=== PATIENT | male | born 1980 | race Caucasian/White ===

== ENCOUNTER 2023-11-26 01:43 | Emergency (ER) | payer MEDICARE, SELFPAY ==
[2023-11-26] VITALS (51 sets, daily range): BP systolic 102–152; BP diastolic 71–103; PULSE 70–135; RESP 12–35; TEMP 37; O2SAT 89–100
--- NOTE | ~2023-11-26 | XR_ITS ---
XR chest 1V portable DATE: 11/26/2023 02:03 INDICATION: Chest pain, shortness of breath TECHNIQUE: Portable AP chest on 11/26/2023 at 0210 hours COMPARISON: None FINDINGS: Normal heart size. No hilar or mediastinal enlargement. No pulmonary infiltrate or consolid ation, pleural effusion or pulmonary vascular congestion or pneumothorax is detected. IMPRESSION: No active cardiopulmonary disease Reviewed, dictated and finalized at location [facility].
--- NOTE | ~2023-11-26 | CT_ITS ---
EXAMINATION: CTA chest PE protocol DATE: 11/26/2023 03:37 INDICATION: Shortness of breath. Elevated d-dimer. TECHNIQUE: Computed tomography angiography (CTA) of the chest was performed with 100 mL Omnipaque-350 intravenous contrast timed to evaluate the pulmonary arteries. Coronal maximum intensity projection 3D-reconstructions were created by the technologist. Automated exposure control and iterative reconst ruction technique were employed. Exam dose: 248.75 mGy-cm total exam DLP. COMPARISON: None. FINDINGS: There is diagnosed contrast-enhancement pulmonary artery and mild bilateral lower lobe subs egmental pulmonary emboli. No thoracic aortic aneurysm or dissection. Normal heart size. No pericardial or pleural effusion. No significantly enlarged hilar or mediastinal lymph nodes. Normal morphology of the adrenal glands. Minimal dependent lower lobe infiltration/atelectasis. The lungs are otherwise clear. Skeletal structures are unremarkable. IMPRESSION: Bilateral subsegmental lower lobe pulmonary emboli Minimal dependent infiltrate and/or atelectasis in the lower lobes. Reviewed, dictated and finalized at [facility]. Reviewed, dictated and finalized at location [facility].
--- NOTE | 2023-11-26 01:45 | ECG_ITS ---
SEE SCANNED COPY FOR CONFIRMED REPORT MTDD
[2023-11-26 01:49] LABS: Glucose Point of Care 117 mg/dl (65-105)
[2023-11-26] MEDS: NITROGLYCERIN SL 0.4 MG TABLET SUBLINGUAL (01:55)
[2023-11-26] MEDS: ASPIRIN 81 MG CHEWABLE TABLET 324 MG PO (01:55)
[2023-11-26] MEDS: METOPROLOL TARTRATE INJ 5 MG/5 ML VIAL IV PUSH (02:00)
[2023-11-26] MEDS: MORPHINE SULFATE (*CRX) 2 MG/ML INJ IV PUSH (02:00)
[2023-11-26 02:05] LABS: Basophils Absolute Auto 0.06 K/mm3 (0.00-0.10); Basophils Percent Auto 0.6 % (0.0-1.0); Eosinophils Absolute Auto 0.13 K/mm3 (0.02-0.50); Eosinophils Percent Auto 1.2 % (1.0-6.0); Hematocrit 49.9 % (40.0-54.0); Hemoglobin 16.6 g/dL (14.0-18.0); Immature Granulocyte Absolute 0.04 K/mm3 (0.00-0.00); Immature Granulocyte Percent A 0.4 % (0.0-0.0); Lymphocytes Absolute Auto 3.29 K/mm3 (1.10-4.50); Lymphocytes Percent Auto 31.3 % (18.0-42.0); Mean Corpuscular HGB Conc 33.3 g/dL (32-36); Mean Corpuscular Hemoglobin 31.7 pg (27.0-31.0); Mean Corpuscular Volume 95.4 fL (78.0-102.0); Mean Platelet Volume 8.8 fl (8.7-11.0); Monocytes Absolute Auto 1.41 K/mm3 (0.10-0.90); Monocytes Percent Auto 13.4 % (2.0-11.0); Neutrophils Absolute Auto 5.57 K/mm3 (1.70-7.20); Neutrophils Percent Auto 53.1 % (50.0-70.0); Platelet Count Result 213 K/mm3 (150-420); Red Blood Count 5.23 M/mm3 (4.70-6.10); White Blood Count 10.5 K/mm3 (4.8-10.8)
--- NOTE | 2023-11-26 02:11 | ED.CHESTPAIN ---
HPI - Chest Pain General Chief Complaint: Chest Pain Stated Complaint: chest pain Time Seen by Provider: 11/26/23 01:54 Source: patient Mode of arrival: ambulatory Limitations: no limitations History of Present Illness HPI narrative: Patient is a 43-year-old male with a significant past medical history that presents today with chest pain. Patient's chest pain since last 3 hours. He woke up with chest pain was very bad. Painful knee came into the ER. He has never had this chest pain before. He was actually taking multiple medications but apparently his doctors or come off all his medications and says he is going to start him over. This this was about a few days ago. When asked if he takes any medications he said no. Apparently he was taking them but is not now. Also has shortness of breath with the chest pain. Chest pain is in the midsternal area radiating to the left MD complaint: chest pain and chest heaviness Onset (ago): hour(s) Timing of current episode: constant Prior episodes: No Onset: during rest Pain location: substernal Severity: moderate Pain scale (0-10): 8 Quality: heaviness and sharp Relieving factors: nothing Exacerbating factors: nothing Associated symptoms: diaphoresis, dyspnea, sense of impending doom and palpitations Treatment prior to arrival: none Risk Factors Coronary artery disease risk factors: smoking history Thoracic aortic dissection risk factors: none Related Data Home Medications Medication Instructions Recorded Confirmed omeprazole 40 mg capsule,delayed 40 mg PO DAILY 11/26/23 11/26/23 release Allergies Allergy/AdvReac Type Severity Reaction Status Date / Time No Known Allergies Allergy Verified 11/26/23 02:01 Review of Systems Review of Systems: All systems reviewed & are unremarkable except as noted in HPI and below Constitutional: Constitutional: Reports as per HPI Eyes: Eyes: Reports no additional eye complaints ENT: Reports system reviewed and no additional complaints, except as documented Cardiovascular: Cardiovascular: Reports no additional cardiovascular complaints Respiratory: Respiratory: Reports no additional respiratory complaints Gastrointestinal: Gastrointestinal: Reports no additional gastrointestinal complaints Genitourinary: Genitourinary: Reports no additional male genitourinary complaints Musculoskeletal: Musculoskeletal: Reports no additional musculoskeletal complaints Integumentary/Breasts: Skin/Breast: Reports system reviewed and no additional complaints, except as docu Neurologic: Reports system reviewed and no additional complaints, except as documented Psychiatric: Psychiatric: Reports no additional psychiatric complaints Endocrine: Endocrine: Reports no additional endocrine complaints Hematologic/Lymphatic: Hematologic/Lymphatic: Reports no additional hematologic/lymphatic complaints Allergic/Immunologic: Allergic/Immunologic: Reports no additional allergic/immunologic complaints Exam Const: General: healthy appearing and comfortable Nutritional Appearance: average body habitus and well nourished Orientation/consciousness: oriented to person and oriented to place HENMT: Head: normal to inspection and No palpable skull fracture present Ears: hearing grossly normal bilaterally Teeth and gingiva: dentition normal Eyes: General: appearance normal, both eyes and all related structures Neck: Neck: normal visual inspection and full ROM Chest: Chest palpation & inspection: normal inspection of the chest and normal palpation of entire chest wall Resp: Effort & Inspection: normal respiratory effort and able to speak in complete sentences Auscultation: clear to auscultation bilaterally Cardio: Jugular venous distension: no JVD Palpation: normal PMI Rate: regular rate Rhythm: regular rhythm Heart sounds: S1 normal heart sound present and S2 normal heart sound present GI: Inspection: normal to inspection and abdominal wall ecchymo
[2023-11-26] MEDS: IPRATROPIUM 0.5 MG/ALBUTEROL SULFATE 2.5 MG AMPUL.NEB 3 ML INHALATION (02:19)
[2023-11-26 02:29] LABS: Alanine Aminotransferase 21 U/L (16-63); Albumin Level 3.4 g/dL (3.4-5.0); Alkaline Phosphatase 131 U/L (46-116); Anion Gap 8 mmol/L (4-12); Aspartate Amino Transferase 25 U/L (15-37); Bilirubin,Total 0.9 mg/dL (0.00-1.00); Blood Urea Nitrogen 6 mg/dL (7-18); Carbon Dioxide 33 mmol/L (21-32); Chloride 97 mmol/L (98-108); Estimated CRCL calculation 95 ml/min; Estimated Glomerular Filt Rate > 60; Glucose 117 mg/dL (70-99); NT Pro B Type Natriuretic Pept 22 pg/mL (0-125); Osmolality Calculated 284 mOsm/kg (285-295); Potassium 3.4 mmol/L (3.5-5.1); Sodium 138 mmol/L (136-145); Total Protein 8.1 g/dL (6.4-8.2)
[2023-11-26 02:39] LABS: Troponin I < 4.0 ng/L (0.00-60.4)
[2023-11-26 03:11] LABS: Amphetamine Screen Urine Negative (Negative); Barbiturate Screen Urine Negative (Negative); Benzodiazepines Screen Urine Negative (Negative); Cannabinoid Screen Urine Positive (Negative); Cocaine Screen Urine Negative (Negative); Methadone Screen Urine Negative (Negative); Opiate Screen Urine Positive (Negative); Phencyclidine Screen Urine Negative (Negative)
[2023-11-26 03:12] LABS: Appearance Urine Clear (Clear); Bilirubin Urine Negative (Negative); Blood Urine Negative (Negative); Color Urine Yellow (Yellow); Glucose Urine UA Negative (Negative); Ketones Urine Negative (Negative); Leukocyte Esterase Ur Negative LEU/UL (Negative); Nitrate Urine Negative (Negative); Protein Urine Negative (Negative); Specific Grav Ur <= 1.005 (1.010-1.020); pH Urine 6.5 (5.0-8.0)
[2023-11-26 03:15] LABS: Add Urine Microscopic? NO
[2023-11-26 05:30] LABS: Troponin I < 4.0 ng/L (0.00-60.4)
[2023-11-26 06:32] LABS: INR 0.9; Partial Thromboplastin Time 28.1 Sec (23.9-30.70); Prothrombin Time 10.4 Seconds (9.50-12.1)
[2023-11-26] MEDS: RIVAROXABAN 15 MG TABLET PO (06:51)
== END 2023-11-26 07:10 | disposition home or self-care (01) ==
PROVIDERS: Emergency Provider Family Medicine; PCP Physician Assistant
DX: I26.99 Other pulmonary embolism without acute cor pulmonale (principal); R07.9 Chest pain, unspecified; R06.02 Shortness of breath
CPT/HCPCS: 36415; 71045; 71275; 80053; 80307; 81003; 82948; 83880; 84484; 85025; 85380; 85610; 85730; 93005; 94640; 96374; 96375; 99284; A9270; J2270; Q9967

== ENCOUNTER 2023-12-03 15:13 | Emergency (ER) | payer MEDICARE, MEDICAID, SELFPAY ==
[2023-12-03 15:13] VITALS: BP 128/87; PULSE 90; RESP 18; TEMP 36.6; O2SAT 99
--- NOTE | 2023-12-03 15:24 | ED.GENADULT ---
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 He was put on anticoagulant for 3 months. His commercial crabber told him he needed to start eating right and stop drinking and smoking. Two weeks ago he started having left inner thigh pain and then 1 week ago he presents to the emergency room with chest pain and was diagnosed with bilateral subsegmental pulmonary embolisms. He is placed on Xarelto 15 mg twice a day for 21 days and then 20 mg daily. He was told he has needed to be on this for the rest of his life. He then follow up with his primary care provider,s nurse practitioner who said she would set him up appointment to see the new commercial crabber to discuss further evaluation of his left lower extremity thigh pain and whether further testing needed to be done. Today presents to the emergency department complaining of left lower extremity swelling his leg. He said his thigh pain is about the same about a 3/10. He is not short of breath he has the same discomfort may be a little better than it was when he was here 10 days ago. He has been compliant with his Xarelto. Denies any trauma cough fever sore throat runny nose rash or itching bleeding or bruising or melena or dizziness or lightheadedness problems voiding or stooling. He has had chronic nausea and vomiting from ulcers but has not been taking anything from this. His primary care provider did not start him on anything for his nausea but he said he has Zofran at home that he can take as needed. Denies any weakness or numbness or any other complaints. Past medical history he is on disability for migraines he has 8 a month he gets shots and is followed by the neurologist. Social history: Patient smokes marijuana and cigarettes. He had a falling out with his roommate and now has been living in his car with his for the last 4 months while his 3 children still live in the house with a roommate. He is allowed to come in the house and shower if the roommate's there. Related Data Allergies Allergy/AdvReac Type Severity Reaction Status Date / Time nortriptyline Allergy Hives Verified 12/03/23 15:32 Review of Systems Review of Systems: All systems reviewed & are unremarkable except as noted in HPI and below Exam Narrative: White male no apparent distress. ?Head:? Normocephalic atraumatic.? Eyes conjunctiva pink sclera nonicteric.? Ears Externally normal. Oropharynx is clear with moist mucous membranes no exudates. Poor dentition.? Neck is supple no lymphadenopathy nontender full range of motion.? Back is nontender.? Chest nontender.? Lungs are clear without wheezes rales or rhonchi.? Heart is regular rate rhythm without murmurs gallops or rubs.? Abdomen soft and nontender no hepatosplenomegaly or masses no CVA tenderness no abdominal bruits.? Extremities no cyanosis Or clubbing. Left lower extremity has +1 edema. Negative Homans sign bilaterally. DP and PT pulses are +2 femoral pulses +2.? Neurological she is alert and oriented x4 motor and sensory grossly intact.? Skin is warm and dry without lesions. Course Vital Signs Vital signs: Vital Signs Temperature 36.6 C 12/03/23 15:13 Pulse Rate 90 12/03/23 15:13 Respiratory Rate 18 12/03/23 15:13 Blood Pressure 128/87 12/03/23 15:13 Pulse Oximetry 99 12/03/23 15:13 Oxygen Delivery Room Air 12/03/23 15:13 Temperature 36.6 C 12/03/23 15:13 Pulse Rate 90 12/03/23 15:13 Respiratory Rate 18 12/03/23 15:13 Blood Pressure 128/87 12/03/23 15:13 Pulse Oximetry 99 12/03/23 15:13 Oxygen Delivery Room Air 12/03/23 15:13 Medical Decision Making [facility] Narrative Medical decision making narrative: ? Patient placed in room: 1 ? H
== END 2023-12-03 16:17 | disposition home or self-care (01) ==
PROVIDERS: Emergency Provider Emergency Medicine; PCP Physician Assistant
DX: M79.89 Other specified soft tissue disorders (principal); I26.94 Multiple subsegmental thrombotic pulmonary emboli without acute cor pulmonale; Z59.02 Unsheltered homelessness; F12.90 Cannabis use, unspecified, uncomplicated; F17.210 Nicotine dependence, cigarettes, uncomplicated; Z79.01 Long term (current) use of anticoagulants
CPT/HCPCS: 99281

== ENCOUNTER 2024-02-21 15:26 | Outpatient (RCR) | payer MEDICARE, MEDICAID, SELFPAY ==
--- NOTE | 2024-02-21 17:14 | OPREHPOC ---
Outpatient Therapy Plan of Care This is a Multidisciplinary Plan of Care that may contain components documented by all disciplines (PT, OT, and ST.) PT Problem 1 PT Problem #1 Knowledge Deficit PT Goal 1 Goal The patient will be independent in a home exercise program. Target Visit 2 PT Problem 2 PT Problem #2 Pain PT Goal 1 Goal 1. The patient will report no greater than 4/10 cervical pain with ADLs. 2. The patient will report a 50% reduction in headache frequency and intensity. Target Visit 10 PT Problem 3 PT Problem #3 Impaired Range of Motion PT Goal 1 Goal The patient will demonstrate improved left cervical lateral flexion and rotation AROM by 10 degrees to improve ROM for ADLs. Target Visit 10
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
--- NOTE | 2024-02-23 14:51 | PCPTNOTE ---
Patient cancelled session today. Reports he cannot make it, but will be here next week.
== END 2024-05-21 23:59 | disposition home or self-care (01) ==
LOC: CHSPT 15:26
PROVIDERS: Visit Provider Clinical Nurse Specialist Adult Health
DX: G43.E09 Chronic migraine with aura, not intractable, without status migrainosus (principal); M54.2 Cervicalgia
CPT/HCPCS: 97014; 97110; 97140; 97161; G0283